=== PATIENT | male | born 1955 | race Two or more races ===

== ENCOUNTER 2017-08-19 06:01 | Emergency (ER) | payer MEDICAID ==
[~2017-08-19] VITALS: Ht 175.3 cm; Wt 83.9 kg
[~2017-08-19 06:01] MED LIST: AML5T PO; AMLO5TAB2; CARI-277 PO; CARI-316; ENAL20TA70 PO; GABA300C10; GABA300C10 PO; HYDR-2595; HYDR25TA4; HYDR25TA4 PO; NIFE-31 PO; NOR10T PO; ZOLP10TA6; ZOLP10TA6 PO
[2017-08-19 08:20] VITALS: BP 160/100
== END 2017-08-19 08:58 | disposition home or self-care (01) ==
LOC: ER 06:07
DX: G89.29 Other chronic pain (principal); M54.5 Low back pain; Z76.0 Encounter for issue of repeat prescription; I10 Essential (primary) hypertension; F17.210 Nicotine dependence, cigarettes, uncomplicated

== ENCOUNTER 2017-09-15 11:34 | Emergency (ER) | payer MEDICAID ==
[~2017-09-15] VITALS: Ht 175.3 cm; Wt 80.7 kg
[2017-09-15 12:23] VITALS: BP 142/97
== END 2017-09-15 12:58 | disposition home or self-care (01) ==
LOC: ER 11:34
DX: G89.29 Other chronic pain (principal); M54.5 Low back pain; I10 Essential (primary) hypertension; M19.90 Unspecified osteoarthritis, unspecified site; F17.210 Nicotine dependence, cigarettes, uncomplicated; Z76.0 Encounter for issue of repeat prescription; Z79.899 Other long term (current) drug therapy
CPT/HCPCS: 93005

== ENCOUNTER 2017-11-07 14:04 | Inpatient (IN) | payer MEDICAID ==
[~2017-11-07] VITALS: Ht 180.3 cm; Wt 81.6 kg
[2017-11-07 15:33] LABS: Basophils # (auto) 0.1 uL; Basophils % (auto) 0.9 % (0.0-2.0); Eosinophils # (auto) 0.1 uL; Hematocrit 46.7 % (41.0-53.0); Hemoglobin 16.1 g/dL (13.5-17.5); Lymphocytes # (auto) 1.7 uL; Lymphocytes % (auto) 25.3 % (10.0-50.0); Mean Corpuscular Hemoglobin 33.6 pg (28.0-32.0); Mean Corpuscular Hgb Conc. 34.5 g/dL (32.0-36.0); Mean Corpuscular Volume 97.3 fL (80.0-100.0); Monocytes # (auto) 0.7 uL; Monocytes % (auto) 10.2 % (0.0-12.0); Neutrophils # (auto) 4.1 uL; Neutrophils % (auto) 62.6 % (37.0-80.0); Nucleated Red Blood Cells % 0.2 %; Platelet Count (auto) 226 10^3/uL (140-450); Red Cell Distribution Width 14.1 % (11.8-14.3); White Blood Cell 6.6 10^3/uL (4.4-10.8)
[2017-11-07 15:55] LABS: Alanine Aminotransferase 82 U/L (16-61); Albumin 3.5 g/dL (3.4-5.0); Alkaline Phosphatase 167 U/L (45-117); Anion Gap 8 (5-15); Aspartate Aminotransferase 98 U/L (15-37); BUN/Creatinine Ratio 14.3; Bilirubin, Total 1.2 mg/dL (0.2-1.0); Blood Alcohol < 3.0 mg/dL (0-5); Blood Urea Nitrogen 9 mg/dL (7-18); Calcium 8.1 mg/dL (8.5-10.1); Carbon Dioxide 24 mmol/L (21-32); Chloride 105 mmol/L (98-107); GFR African American 165 mL/min; GFR Non-African American 137 mL/min; Glucose 111 mg/dL (74-106); Potassium 3.4 mmol/L (3.5-5.1); Sodium 137 mmol/L (136-145); Total Protein 8.4 g/dL (6.4-8.2)
[2017-11-07] MEDS ORDERED: SODIUM CHLORIDE 0.9% 1,000 ML IVB ONE ×2 (16:09→16:49)
[2017-11-07 16:16] LABS: Acetaminophen < 2.0 ug/mL (10-30); Salicylate < 1.7 mg/dL (2.8-20.0)
[2017-11-07 16:52] LABS: Urine Bacteria NONE SEEN /hpf (None Seen); Urine Blood Negative /uL (Negative); Urine Hyaline Cast FEW /lpf (0 - 2); Urine Mucus FEW (None Seen); Urine Specific Gravity 1.015 (1.001-1.035); Urine WBC 2 /hpf (0 - 3)
[2017-11-07 17:02] LABS: Alcohol, Urine < 3.0 mg/dL (0-5); Amphetamine Screen, Urine POSITIVE (NEGATIVE); Barbiturate Scree,Urine NEGATIVE (NEGATIVE); Benzodiazephine Screen, Urine NEGATIVE (NEGATIVE); Cannabinoid Screen, Urine NEGATIVE (NEGATIVE); Cocaine Screen, Urine NEGATIVE (NEGATIVE); Opiate Scree,Urine POSITIVE (NEGATIVE); Phencyclidine Screen, Urine NEGATIVE (NEGATIVE)
[2017-11-07] MEDS ORDERED: ONDANSETRON HCL 4 MG/2 ML VIAL IV PRN (23:30)
[2017-11-08] MEDS ORDERED: cloNIDine HCL 0.1 MG TAB PO PRN
[2017-11-08 00:43] VITALS: BP 147/94
[2017-11-08 06:00] VITALS: BP 123/84
[2017-11-08 08:50] VITALS: BP 158/101
[2017-11-08] MEDS ORDERED: amLODIPine BESYLATE 5 MG TAB PO SCH (10:00)
[2017-11-08] MEDS ORDERED: ENALAPRIL MALEATE 10 MG TAB PO SCH (10:00)
[2017-11-08] MEDS ORDERED: POTASSIUM CHL 10 Meq TABLET PO ONE (10:30)
[2017-11-08 12:00] VITALS: BP 156/103
[2017-11-08 14:00] VITALS: BP 142/89
== END 2017-11-08 16:00 | disposition home or self-care (01) | DRG 812 ==
LOC: ER 14:04 → EDUNIT# 14:04 → TELE-EAST 14:05 → ER 11-08 00:41
PROVIDERS: ADMIT Nurse Practitioner Family; ATTEND Internal Medicine
DX: T43.621A Poisoning by amphetamines, accidental (unintentional), initial encounter (principal); G92 Toxic encephalopathy; R65.10 Systemic inflammatory response syndrome (SIRS) of non-infectious origin without acute organ dysfunction; G89.29 Other chronic pain; G47.00 Insomnia, unspecified; I10 Essential (primary) hypertension; F17.200 Nicotine dependence, unspecified, uncomplicated; M19.90 Unspecified osteoarthritis, unspecified site; M54.5 Low back pain; T40.601A Poisoning by unspecified narcotics, accidental (unintentional), initial encounter; E87.6 Hypokalemia; Y92.89 Other specified places as the place of occurrence of the external cause; Z79.899 Other long term (current) drug therapy
CPT/HCPCS: 36415; 51702; 70450; 71045; 80053; 80307; 80320; 80329; 81001; 82962; 85025; 93005; 94761

== ENCOUNTER 2018-01-22 09:28 | Emergency (ER) | payer MEDICAID ==
[~2018-01-22] VITALS: Ht 175.3 cm; Wt 84.8 kg
[2018-01-22 09:38] VITALS: BP 96/68
== END 2018-01-22 10:24 | disposition home or self-care (01) ==
LOC: ER 09:31
DX: M67.432 Ganglion, left wrist (principal); M19.90 Unspecified osteoarthritis, unspecified site; I10 Essential (primary) hypertension; F17.210 Nicotine dependence, cigarettes, uncomplicated; Z79.899 Other long term (current) drug therapy

== ENCOUNTER 2018-05-05 12:38 | Emergency (ER) | payer MEDICAID ==
[~2018-05-05] VITALS: Ht 175.3 cm; Wt 83.9 kg
[~2018-05-05 12:38] MED LIST changes: +AMLO5TAB13; -AMLO5TAB2; -CARI-316; +CARI350T22
[2018-05-05 13:53] VITALS: BP 141/99
== END 2018-05-05 14:59 | disposition home or self-care (01) ==
LOC: ER 12:40
DX: K04.7 Periapical abscess without sinus (principal); G89.29 Other chronic pain; M54.5 Low back pain; F17.210 Nicotine dependence, cigarettes, uncomplicated; I10 Essential (primary) hypertension; Z76.0 Encounter for issue of repeat prescription

== ENCOUNTER 2018-11-12 16:03 | Emergency (ER) | payer MEDICAID ==
[~2018-11-12] VITALS: Ht 175.3 cm; Wt 82.6 kg
[2018-11-12 17:18] VITALS: BP 118/80
== END 2018-11-12 18:01 | disposition home or self-care (01) ==
LOC: ER 16:03
DX: M54.5 Low back pain (principal); G89.29 Other chronic pain; M19.90 Unspecified osteoarthritis, unspecified site; I10 Essential (primary) hypertension; F17.210 Nicotine dependence, cigarettes, uncomplicated; Z76.0 Encounter for issue of repeat prescription; Z79.899 Other long term (current) drug therapy